=== PATIENT | female | born 2000 | race Caucasian/White ===

== ENCOUNTER 2024-08-24 17:57 | Inpatient (IN) | payer SELFPAY ==
[2024-08-24 18:03] VITALS: BP 131/88; BMI 24.9
== END 2024-08-24 19:30 | disposition home or self-care (01) | DRG 833 ==
LOC: LDRP 17:57
PROVIDERS: ADMITTING PHYSICIAN Obstetrics & Gynecology
DX: O60.03 Preterm labor without delivery, third trimester (principal); Z3A.38 38 weeks gestation of pregnancy
CPT/HCPCS: G0378